=== PATIENT | male | born 1970 | race Caucasian/White ===

== ENCOUNTER 2023-01-20 19:05 | Inpatient (IN) | payer BC, SELFPAY ==
[2023-01-20] VITALS (12 sets, daily range): BP systolic 125–180; BP diastolic 80–116; PULSE 76–104; RESP 12–22; TEMP 36.8; O2SAT 90–99; BMI 35.6; BMI 38.5
--- NOTE | 2023-01-20 19:06 | XRR_ITS ---
PROCEDURE INFORMATION: Exam: XR Chest Exam date and time: 01/20/2023 8:43 PM Age: 52 years old Clinical indication: Pain; Chest pressure; Additional info: Cp TECHNIQUE: Imaging protocol: Radiologic exam of the chest. Views: 1 view. COMPARISON: No relevant prior studies available. FINDINGS: Lungs: No CHF/pulmonary edema. Visible lungs appear essentially clear. Pleural spaces: No visible pneumothorax. No definite pleural fluid. Heart/Mediastinum: Heart size appears upper range of normal. Bones/joints: No significant acute finding. XR/XR chest 1V portable [id number] IMPRESSION: 1. No definite CHF or pneumonia. 2. Other findings discussed above.
--- NOTE | 2023-01-20 19:08 | XACV_ITS ---
Exam Room: 2 Ht: 183 cm Wt: 122 kg BSA: 2.54 m2 Gender: Male : 1970 Any Known Allergies: Codeine Exam Priority: Routine Indication(s): - Acute coronary syndrome Procedure(s): Procedure Description: Diagnostic procedure Procedure Description: PCI procedure Procedure Description: Left Heart Catheterization Procedure Description: Coronary IVUS Procedure Description: Drug Eluting Coronary Stent Procedure Description: PTCA Procedure Description: Miscellaneous Procedure Description: ACT Procedure Description: Coronary Angiography Diagnostic Cath Status: Emergency Diagnostic Findings * INDICATION: ST Elevation IN. * Circumflex has no significant disease. * Proximal Left Anterior Descending: total thrombotic occlusion, LEILA: 0 flow. This is the culprit vessel for ST elevation IN. * Proximal Right Coronary Artery: Chronic total occlusion, LEILA: 0 flow. It receives large sized epicardial collaterals from LAD. * Left Main has no disease. * First Obtuse Marginal Branch Segment: significant 80% stenosis, LEILA: 3 flow. * Coronary angiography shows right dominance. PCI Status: Emergency PCI Indication: Immediate PCI for STEMI Interventional Findings * PROCEDURE DETAIL: We engaged left main artery with XB 3.5 guide catheter. IV heparin was administered to maintain ACT. 0.014 run-through guidewire was used to cross totally occluded proximal LAD segment and was put in the distal vessel. We predilated the stenosis with 2.5 x 12 mm semicompliant balloon. This restored some flow. We used IVUS to size the vessel. Thrombus was seen. We then proceeded with placement of 3.5 x 18 mm resolute [place] drug-eluting stent in proximal LAD. IVUS was repeated that showed proximal portion of the stent had some underexpansion. This was followed by post dilation with 3.75 x 6 mm NC balloon. At this time final angiogram showed excellent stent expansion, no residual stenosis and LEILA-3 flow. We then turned our attention to OM 1 stenosis. Same run-through wire was used to cross the stenosis. We predilated it with 2.5 x 12 mm semicompliant balloon. This was followed by placement of 3.5 x 22 mm resolute [place] drug-eluting stent. IVUS was used to assess the stent. In the midsegment of the stent there was some underexpansion. We postdilated the stent with 3.75x3fnOY balloon. At this time, final angiogram was performed that showed excellent stent expansion, LEILA 3 flow and no residual stenosis. Guidewire and guide catheter were removed. Patient left the laboratory manager in a stable condition. . * Proximal Left Anterior Descendin% stenosis treated with a AB TREK 2.50X12 RX BALLOON, MDT R ADONIS 3.5X18 MARINA, and MDT NC EUPHORA RX [id number] BALLOON. 0% residual stenosis, LEILA: 3 flow. * First Obtuse Marginal Branch Segment: 80% stenosis treated with a AB TREK 2.50X12 RX BALLOON, MDT R ADONIS 3.5X22 MARINA, and MDT NC EUPHORA RX [id number] BALLOON. 0% residual stenosis, LEILA: 3 flow. Conclusions 1. Total thrombotic occlusion of proximal LAD 2. . This is culprit vessel for ST elevation IN. S/p successful revascularization with MARINA x1.. 3. Severe stenosis of OM1 s/p successful revascularization with 1 stent. 4. Proximal Left Anterior Descending was treated with a Balloon, Drug Eluting Stent, and Balloon. 5. First Obtuse Marginal Branch Segment was treated with a Balloon, Drug Eluting Stent, and Balloon. Recommendations * Dual antiplatelet therapy with aspirin and Plavix for at least 1 year. * High intensity statin therapy. * Transfer to ICU. * Aggrastat drip for 4 hours. Interventional RX Recommendation: PCI w/o planned CABG Diagnostic RX Recommendation: PCI w/o planned CABG Anticoagulation: Heparin Pressures Phase:Rest AO : 104 / 104 ( 93 ) @ 3:18:29 PM 102 / 89 ( 80 ) @ 3:18:29 PM 115 / 94 ( 105 ) @ 3:18:29 PM 113 / 89 ( 101 ) @ 3:18:29 PM 142 / 83 ( 111 ) @ 3:18:29 PM 136 / 85 ( 108 ) @ 3:18:29 PM LV : 144 / 8 / 25 @ 3:18:29 PM 145 / 10 / 24 @ 3:18:29 PM Valves Phase:DefaultPhase AV : 1.0 @ 8:18:29 PM 1.0 @ 8:18:29 PM AV Mean Gradient: 0.0 @ 8:18:29 PM Clinical Evaluation EBL: 5mL-10mL Procedural Details Pre-Procedure Time Out. Identified patient by full name and date of as verbalized by the patient/guarantor. Does the consent match the physician's order: N/A Emergent; Informed Consent not obtained due to time critical life threat. Accurate & Complete Informed Consent: N/A Emergent; Informed Consent not obtained due to time critical life threat. Inpatient/Outpatient History & Physical on Chart: N/A Emergent; Informed Consent not obtained due to time critical life threat. If H&P is completed, is and addenduem needed: N/A Emergent; Informed Consent not obtained due to time critical life threat; If yes, is the addendum complete: N/A Emergent; Informed Consent not obtained due to time critical life threat. Visualize and Verify Site with Patient/Guarantor: N/A. Relevant Radiology Images available: N/A Emergent; Informed Consent not obtained due to time critical life threat. Pre-op teaching completed and patient verbalized understanding. The risks, benefits, and alternatives of sedation and/or procedure were discussed by physician. The patient agrees to continue. Procedure started. [facility] Clinical Fraility Score: 3: Managing Well. 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 Chest Pain Symptom Assessment: Typical Angina Symptoms. Cardiovascular Instability: Yes, if yes, Persistant Ischemic Symptoms. Correct patient, site and procedure confirmed by cath team. Current diagnosis: STEMI. PERRLA. Strong, equal hand questioned documents examiner bilaterally. Lungs clear x 5 lobes. IV Site on Arrival: 20 gauge in the left hand. IV Site on Arrival: 20 gauge in the right anticubital. IV Fluids: 0.9% NaCl at KVO. 0 mL infused prior to laboratory manager. Oxygen started at 3liters/min via nasal canula. right groin was prepped with chloroprep then draped in the usual sterile fashion. right radial was prepped with chloroprep then draped in the usual sterile fashion. Physician notified. Baseline sample Acquired. HR: 101 BPM. Patient's family unavailable. Equipment: 6F - Radial. Cardiac Cath Pack. ACIST Manifold Kit Model BT 2000. Heparinized Saline (2 units/mL), 1000 mL bag. Physician arrived. Physician scrubbed in. Immediate Pre-Procedure Time Out. Correct Patient: N/A Emergent; Informed Consent not obtained due to time critical life threat; Correct Procedure: N/A Emergent; Informed Consent not obtained due to time critical life threat; Correct Site: N/A Emergent; Informed Consent not obtained due to time critical life threat; Correct Patient Position: N/A Emergent; Informed Consent not obtained due to time critical life threat; Correct Supplies: N/A Emergent; Informed Consent not obtained due to time critical life threat; Dried Flammable Prep: N/A Emergent; Informed Consent not obtained due to time critical life threat; Blood Products Available: N/A Emergent; Informed Consent not obtained due to time critical life threat;. Lidocaine 1% infiltrated to the right radial. Arterial access obtained. 6 bolivian XB 3.5 guide catheter was inserted over the Exchange J wire. Current Diagnosis : STEMI. Runthrough guidewire was advanced through the guide catheter to lesion in the prox LAD. Inflation number : 1 A AB TREK 2.50X12 RX BALLOON was prepped and advanced across the Prox LAD , then inflated to 12 CONRAD for 0:23 seconds. Inflation number: 2 The AB TREK 2.50X12 RX BALLOON was reinflated across the Prox LAD, to 12 CONRAD for 0:14 seconds. Results checked. Balloon out. IVUS catheter in, ringdown and measurements obtained, catheter out. Inflation Number : 3 A MDT R ADONIS 3.5X18 MARINA -Lot Number# [id number] was prepped and advanced across the Prox LAD. The stent was deployed at 12 CONRAD for 0:25 seconds. Exp 2024-07-08. Stent balloon out over wire. Results checked. IVUS catheter in, recording completed, catheter out. Results checked. Inflation number : 4 A MDT NC EUPHORA RX [id number] BALLOON was prepped and advanced across the Prox LAD , then inflated to 12 CONRAD for 0:13 seconds. Balloon out. Results checked. Runthrough guidewire redirected to the OM. Inflation number : 1 A AB TREK 2.50X12 RX BALLOON was prepped and advanced across the 1st Ob Alexa , then inflated to 10 CONRAD for 0:08 seconds. Balloon out. Results checked. PCI Indication : Immediate PCI for STEMI. Inflation Number : 2 A MDT R ADONIS 3.5X22 MARINA -Lot Number# [id number] was prepped and advanced across the 1st Ob Alexa. The stent was deployed at 12 CONRAD for 0:19 seconds. Exp 2024-09-04. Stent balloon out over wire. Results checked. Inflation number : 3 A MDT NC EUPHORA RX [id number] BALLOON was prepped and advanced across the 1st Ob Alexa , then inflated to 12 CONRAD for 0:15 seconds. Balloon out. Results checked. IVUS catheter in, recording completed, catheter out. Wire out. Results checked. ACT drawn. Results seconds. Therapeutic limits - pre-heparin administration 90-150 seconds and monitoring heparin during a vascular procedure >250 seconds. Guide catheter out over the Exchange J wire. A 5 bolivian JR4 catheter in over the Exchange J wire. EDP Sample taken: LV 144/8,25; HR: 94 BPM; SpO2: 95%. Pullback taken: LV 145/10,24; AO 142/83(111); Mean: 0mmHg, Peak to Peak: 1mmHg, SEP: 9sec/min; HR: 98 BPM; SpO2: 95%. Catheter redirected to the RCA. Cineography of the LCA performed. Cineography of the RCA performed. Catheter removed over the exchange J wire. Physician scrubbed out. A TR Band was successful obtaining hemostatsis at the Right Radial artery insertion site. TR band placed. Hemostasis obtained. Post Procedure: right radial pulse 2+. PERRLA. Strong, equal hand questioned documents examiner bilaterally. No VTE prophylaxis required. PCI Indication: STEMI. Post-op diagnosis: S/P PCI of the Prox LAD and OM 1. 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 Complications: none. Estimated blood loss: 5mL-10mL. Responsiveness - Normal response to verbal stimuli; alert and oriented, PERRLA. Airway - Unaffected, no intervention required; spontaneous ventilation. Circulation: W/N/L, pulses unchanged. Nausea/Vomiting: No. Medication's Wasted: Nitro = 49.8 mg. Medication's Wasted: Heparin = 2000 Units. Medication's Wasted: Other = Fentanyl 75 mcg. Medication's Wasted: Other = Lasix 60 mg. Total IV fluids: 47 mL. Procedure completed. Patient transferred by wheelchair to ICU. Vital chart was stopped. Access Site Site: Right Radial artery Sheath Size: 6 Fr Hemostasis Method: TR Band Hemostasis Success: Successful Procedure Medications Start: 7:34 PM Stop: 7:34 PM Medication: Versed Amount: 1 mg Route: I.V. Start: 7:34 PM Stop: 7:34 PM Medication: Fentanyl Amount: 50 mcg Route: I.V. Start: 7:34 PM Stop: 7:34 PM Medication: Nitrogylcerin Amount: 200 mcg Route: I.A. Start: 7:39 PM Stop: 7:39 PM Medication: Versed Amount: 1 mg Route: I.V. Start: 7:39 PM Stop: 7:39 PM Medication: Heparin Amount: 7000 units Route: I.V. Start: 7:43 PM Stop: 7:43 PM Medication: Fentanyl Amount: 25 mcg Route: I.V. Start: 7:44 PM Stop: 7:44 PM Medication: Heparin Amount: 2000 units Route: I.V. Start: 7:44 PM Stop: 7:44 PM Medication: Fentanyl Amount: 25 mcg Route: I.V. Start: 7:47 PM Stop: 7:47 PM Medication: Aggrastat 12.5 mg/250 mL Amount: ml Route: I.V. bolus Start: 7:47 PM Stop: 7:47 PM Medication: Aggrastat 12.5 mg/250 mL Amount: 22.5 ml/hr Route: I.V. bolus Start: 7:50 PM Stop: 7:50 PM Medication: Versed Amount: 1 mg Route: I.V. Start: 7:50 PM Stop: 7:50 PM Medication: Fentanyl Amount: 25 mcg Route: I.V. Start: 7:58 PM Stop: 7:58 PM Medication: Versed Amount: 1 mg Route: I.V. Start: 8:11 PM Stop: 8:11 PM Medication: Lasix (furosemide) Amount: 40 mg Route: I.V. I, the attending physician, have reviewed and verified all procedure medications. Yes, all medications given per verbal order Report Signatures Finalized by Matti Merrill MD on 01/21/2023 12:40 PM
--- NOTE | 2023-01-20 19:09 | ED_ITS ---
HPI - Chest Pain General: Stated Complaint: CP Time Seen by Provider: 01/20/23 19:06 Source: patient Mode of arrival: ambulatory Limitations: no limitations History of Present Illness: 52-year-old male states he started having chest pain roughly 45 minutes to an hour ago. Patient was flown here EKG with helicopter service does show a STEMI with elevation in V1 through V3 he is on a nitro drip he states pain has improved on the nitro. No history of known cardiac disease does have high cholesterol and obesity Associated symptoms: Reports nausea; Deny abdominal pain, dyspnea, fever(s) or vomiting Review of Systems Const: Denies: fever(s) or chills Eyes: Denies: eye discomfort ENMT: Denies: throat pain or dental pain Card: Reports: chest pain Resp: Denies: dyspnea GI: Reports: nausea; Denies: abdominal pain or vomiting Musc: Denies: neck pain or back pain Skin/Breast: Denies: rash Neuro: Denies: headache(s) Physical Exam Const: COMMON NORMALS: patient oriented x3 GENERAL APPEARANCE: ill appearing HENMT: COMMON NORMALS: normocephalic and atraumatic HEAD & SCALP: normocephalic and atraumatic Eye: COMMON NORMALS: conjunctivae normal CONJUNCTIVA: Yes conjunctivae normal Neck/C-Spine: COMMON NORMALS: full ROM and supple Chest: COMMONS NORMALS: normal inspection of the chest and normal palpation of entire chest wall Resp: COMMON NORMALS: normal respiratory effort, No retractions, No use of accessory muscles and clear to auscultation bilaterally AUSCULTATION: clear to auscultation bilaterally Cardio: COMMON NORMALS: regular rate, regular rhythm and No murmurs present (Cardio) RATE: regular rate RHYTHM: regular rhythm GI: COMMON NORMALS: Normal to inspection, nondistended, normoactive bowel sounds present, Soft to palpation, non-tender and no masses PALPATION: Yes So ft to palpation Extremity: COMMON NORMALS: normal to inspection Neuro: COMMON NORMALS: patient oriented x3, moves all extremities and no focal motor deficits Psych: COMMON NORMALS: mental status grossly normal, Normal thought process present and cooperative THOUGHT PROCESS: Normal thought process present Skin: COMMON NORMALS: no rashes or lesions noted and no wounds GENERAL SKIN EXAM: no rashes or lesions noted MDM - Chest Pain Medical Decision Making Patient presents with ST elevation ID he is on a nitro drip by EMS we will give him heparin Plavix I spoke to the inspector packer [employer] Media Specialist activated Discharge Plan Discharge Patient Disposition: Admitted As Inpatient Clinical Impression: ST elevation (STEMI) myocardial infarction Condition: Stable Coding Level of Care Code ED Operational Communication Chief for Jordan Cheema
[2023-01-20] MEDS: heparin 5,000 unit/mL INJ 1 mL 4000 UNIT IVP (19:15)
--- NOTE | 2023-01-20 19:18 | PM.HP ---
Providers/Chief Complaint Admitting Physician: Matti Merrill MD Chief Complaint: Chest pain History of Present Illness Madan West is a 52 year old male with smoking history and no significant prior cardiac history and not on any medications started having chest pain about 1 hour ago. Severe substernal pain. EMS was called and EKG is demonstrating ST elevations in anterior leads with significant reciprocal changes. STEMI alert was activated and patient brought to the Operator Receptionist emergently. Review of Systems Const: Denies: fever(s) or chills Eyes: Denies: eye discomfort ENMT: Denies: throat pain or dental pain Card: Reports: chest pain Resp: Denies: dyspnea GI: Reports: nausea; Denies: abdominal pain or vomiting Musc: Denies: neck pain or back pain Skin/Breast: Denies: rash Neuro: Denies: headache(s) Medications/Allergies Allergies Allergy/AdvReac Type Severity Reaction Status Date / Time codeine Allergy Unknown Verified 01/20/23 19:13 Vitals/I&O/Wt Last Vital Signs Pulse 78 01/20/23 19:06 Resp 18 01/20/23 19:06 BP 134/80 01/20/23 19:06 Pulse Ox 97 01/20/23 19:06 Weight last 48 hrs Weight 270 lb Physical Exam Narrative: GENERAL: Patient is alert, awake and oriented x3. [] NECK: No jugular vein distension. [] HEENT: No cyanosis. No icterus. No pallor. [] HEART: Regular S1 and S2. No murmur, rub or gallop. [] LUNGS: Diminished air entry. CENTRAL NERVOUS SYSTEM: Grossly nonfocal. [] EXTREMITIES: Lower extremities with no edema Data 01/20/23 19:15 01/20/23 19:15 A&P Assessment and plan (1) ST elevation (STEMI) myocardial infarction: Plan Patient appears to have anterior wall ST elevation CO. Operator Receptionist activated emergently. Going for emergent coronary angiogram. Procedure discussed with patient who agrees to proceed. Aspirin, Plavix loaded. IV heparin bolus given. We will obtain echocardiogram postprocedure. ICU transfer post procedure Attestations Medical Necessity Statement*: Care expected to cross 2 midnights. Patient has presented with ST elevation CO and plan for emergent coronary angiogram with PCI. Coding Level of Care Code Acute Code for [facility] Diagnoses ST elevation (STEMI) myocardial infarction I21.3
[2023-01-20] MEDS: sodium chloride 0.9% 1,000 ML 999 ML IV (19:20)
[2023-01-20] MEDS: clopidogrel 300 mg Tablet 600 MG PO (19:20)
[2023-01-20 19:29] LABS: Basophils # 0.1 10^3/uL (0.0-0.1); Basophils % 0.4 %; Eosinophils # 0.4 10^3/uL (0.0-0.8); Eosinophils % 2.1 %; Hematocrit 54.5 % (42.0-52.0); Hemoglobin 18.6 g/dL (11.7-16.6); Lymphocytes # 2.1 10^3/uL (0.8-4.8); Lymphocytes % 13.1 %; Mean Corpuscular HGB Conc 34.1 g/dL (30.0-36.0); Mean Corpuscular Volume 90.8 fl (80-94); Monocytes % 5.8 %; Neutrophils # 12.65 10^3/uL (1.8-7.7); Neutrophils % 77.9 %; Nucleated Red Blood Cells % 0 %; Platelet Count 242 10^3/cmm (130-400); Red Cell Distribution Width 13.6 % (12.1-15.1); White Blood Count 16.3 10^3/uL (4.0-10.0)
[2023-01-20 19:41] LABS: INR 0.86 (0.8-1.2)
[2023-01-20 19:49] LABS: Alanine Aminotransferase 24 U/L (0-41); Albumin Level 4.6 g/dL (3.5-5.2); Alkaline Phosphatase 94 U/L (40-130); Aspartate Amino Transferase 18 U/L (0-40); Blood Urea Nitrogen 12 mg/dL (6-20); Calcium 10.1 mg/dL (8.5-10.5); Carbon Dioxide 26 mmol/L (22-29); Chloride 100 mmol/L (98-107); Globulin 3.4 g/dL (1.3-4.6); Glucose 128 mg/dL (65-115); Osmolality Calculated 291 mOsm/kg (285-295); Sodium 140 mmol/L (136-145); Total Bilirubin 0.8 mg/dL (0.15-1.2)
[2023-01-20 19:53] LABS: Troponin(5th) Baseline 40 ng/L (0-15)
--- NOTE | 2023-01-20 20:20 | PC.NURSE ---
Admission Note: Pt arrived from ship laborer to ICU 8 via wheelchair @201901/20/23. Continuos cardiac monitoring initiated. TR band to r. radial, w/ 14ml balloon per ship laborer team. Pt reporting CP 10/27, Dr. Merrill aware.
--- NOTE | 2023-01-20 20:24 | USCV_ITS ---
Madan West Age: 52 Gender: M : 1970 Exam Date: 01/20/2023 20:58 Ordering Phys: Matti Merrill M.D ([email or web address]) Technologist: NEYDA [place]am Location[place] [facility] [place] Indication: STEMI. s/p cardiac catheterization with 2 stents. BP: 137 / 82 HR: 89 Rhythm: Sinus Technical Quality: Adequate with OPTISON MEASUREMENTS (Male / Female) Normal Values 2D ECHO LV Diastolic Diameter PLAX 3.9 cm 4.2 - 5.9 / 3.9 - 5.3 cm LV Systolic Diameter PLAX 2.8 cm IVS Diastolic Thickness 1.3 cm 0.6 - 1.0 / 0.6 - 0.9 cm IVS Systolic Thickness 2.2 cm LVPW Diastolic Thickness 1.4 cm 0.6 - 1.0 / 0.6 - 0.9 cm LVPW Systolic Thickness 1.7 cm LVOT Diameter 2.0 cm LV Ejection Fraction 2D Teich 56.3 % LV Ejection Fraction MOD 2C 53.6 % LV Ejection Fraction 2C AL 53.3 % LA Diameter 4.2 cm LA Width 3.9 cm LA Height 5.3 cm RA Width 4.0 cm RA Height 4.9 cm IVC Diameter 2.0 cm M-MODE Aortic Annulus Diameter 3.0 cm LA Ao Ratio MM 1.3 MV E Point Septal Separation 0.7 cm DOPPLER AV Peak Velocity 116.0 cm/s LVOT Peak Velocity 68.0 cm/s AV Area Cont Eq vti 1.9 cm squared AV Area Cont Eq pk 1.8 cm squared MV Area PHT 4.0 cm squared Mitral E to A Ratio 2.6 MV E' Velocity 45.5 cm/s Mitral E to MV E' Ratio 9.8 Mitral E to LV E' Lateral Ratio 10.7 Mitral E to LV E' Septal Ratio 9.2 TV Peak E Velocity 44.0 cm/s PV Peak Velocity 69.0 cm/s RV Acceleration Time 0.1 s RV Ejection Time 0.3 s RV AcT/ET 0.3 FINDINGS Left Ventricle Technically limited quality echocardiogram because of poor visualization. LV systolic function is moderately reduced with EF of 35 to 40%. Severe hypokinesis of anterior, anteroseptal and inferoseptal andres. Akinetic apical wall. Grade 3 diastolic dysfunction Right Ventricle Normal in size and function Right Atrium Normal in size Left Atrium Normal in size Mitral Valve Structurally normal mitral valve. Aortic Valve Grossly normal. No significant stenosis or regurgitation. Tricuspid Valve Mild tricuspid regurgitation. Insufficient TR jet to calculate RVSP. Pulmonic Valve Not well visualized Pericardium Normal Aorta Grossly normal in size IVC Appears to be normal CONCLUSIONS Technically limited quality echocardiogram because of poor ultrasonic windows. LV systolic function is moderately reduced with EF of 35 to 40%. Above-mentioned regional wall motion abnormalities are seen. Grade 3 diastolic dysfunction. Mild tricuspid regurgitation. No comparison studies are available Matti Merrill MD (Electronically Signed) Final Date: 21 January 2023 07:44 S
--- NOTE | 2023-01-20 20:50 | ECG_ITS ---
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 Measurements Intervals [place] Rate: 81 P: 0 MT: 0 QRS: 55 QRSD: 94 T: 36 QT: 350 QTc: 407 Interpretive Statements ATRIAL FIBRILLATION WITH ABERRANT CONDUCTION OR VENTRICULAR PREMATURE COMPLEXES ST ELEVATION, CONSIDER SEPTAL INJURY [MARKED ST ELEVATION W/O NORMALLY INFLECTED T-WAVE IN V1/V2] ACUTE VA No previous ECG available for comparison Electronically Signed On 01-21-2023 4:16:56 CDT by Rosita Caldera M.D. [id number]
[2023-01-20] MEDS: tirofiban 5 MG/100 ML PREMIX 22.05 MG IV (21:00)
[2023-01-20] MEDS: metoprolol tartrate 25 mg Tablet 12.5 MG PO (21:48)
[2023-01-20] MEDS: atorvastatin 40 mg Tablet 80 MG PO (21:48)
[2023-01-20 22:06] LABS: Troponin 5 2HR 5929 ng/L (0-15); Troponin 5 2HR Delta 5889 ABS# (0-10)
[2023-01-21] VITALS (27 sets, daily range): BP systolic 98–141; BP diastolic 74–110; PULSE 78–98; RESP 17–27; TEMP 36.6–37.2; O2SAT 88–98
--- NOTE | 2023-01-21 00:44 | PC.NURSE ---
TR band removed: Air removed from TR band slowly over several hours. No oozing noted. TR band removed @0005 01/21/23 and transparent dressing applied. See Post Caridac Cath Flow Sheet for site observations.
[2023-01-21] MEDS: perflutren protein-a microsphr 0.22 mg/mL SDV 3 mL IV (05:52)
--- NOTE | 2023-01-21 06:21 | PC.NURSE ---
V. Tach: Pt had 4 runs of V. tach throughout the night, ranging from 5 to 9 consecutive beats. Strips placed in paper chart.
[2023-01-21 06:29] LABS: Basophils # 0.1 10^3/uL (0.0-0.1); Basophils % 0.3 %; Eosinophils # 0.1 10^3/uL (0.0-0.8); Eosinophils % 0.5 %; Hematocrit 49.3 % (42.0-52.0); Hemoglobin 16.8 g/dL (11.7-16.6); Lymphocytes # 1.9 10^3/uL (0.8-4.8); Lymphocytes % 10.9 %; Mean Corpuscular HGB Conc 34.1 g/dL (30.0-36.0); Mean Corpuscular Hemoglobin 31.1 pg (28.0-34.0); Mean Corpuscular Volume 91.3 fl (80-94); Mean Platelet Volume 11.2 fL (7.4-10.4); Monocytes % 5.5 %; Neutrophils # 14.28 10^3/uL (1.8-7.7); Neutrophils % 82.3 %; Nucleated Red Blood Cells % 0 %; Platelet Count 218 10^3/cmm (130-400); Red Cell Distribution Width 13.7 % (12.1-15.1); White Blood Count 17.4 10^3/uL (4.0-10.0)
[2023-01-21 06:57] LABS: Anion Gap 16.7 (5-19); Blood Urea Nitrogen 13 mg/dL (6-20); Calcium 9.3 mg/dL (8.5-10.5); Carbon Dioxide 24 mmol/L (22-29); Chloride 101 mmol/L (98-107); Glomerular Filtration Rate 78.2 mL/min (90-130); Glucose 130 mg/dL (65-115); Osmolality Calculated 288 mOsm/kg (285-295); Potassium 3.7 mmol/L (3.5-5.1); Sodium 138 mmol/L (136-145)
--- NOTE | 2023-01-21 07:10 | PM.PN ---
Subjective Subjective: Patient had presented with anterior wall STEMI yesterday and underwent revascularization of prox LAD with 1 stent and of OM 1 with 1 stent. 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 Denies chest pain. Vitals/I&O/Wt Last Vital Signs Temp 98.2 F 01/20/23 21:30 Pulse 88 01/21/23 06:00 Resp 19 H 01/21/23 06:00 BP 119/91 01/21/23 06:00 Pulse Ox 92 01/21/23 06:00 O2 Del Method Room Air 01/21/23 06:00 01/20/23 01/21/23 01/21/23 22:59 06:59 14:59 Intake Total 850 / 850 367.987 / 1217.987 Output Total 1000 / 1000 300 / 1300 Balance -150 / -150 67.987 / -82.013 Weight last 48 hrs Weight 292 lb Weight 270 lb Physical Exam Narrative: GENERAL: Patient is alert, awake and oriented x3. [] NECK: No jugular vein distension. [] HEENT: No cyanosis. No icterus. No pallor. [] HEART: Regular S1 and S2. No murmur, rub or gallop. [] LUNGS: Diminished air entry. CENTRAL NERVOUS SYSTEM: Grossly nonfocal. [] EXTREMITIES: Lower extremities with no edema Data 01/21/23 05:50 01/21/23 05:50 A&P Assessment and plan (1) ST elevation (STEMI) myocardial infarction: (2) HFrEF (heart failure with reduced ejection fraction): Plan Patient had PCI of LAD and OM 1 yesterday. He is doing well. Dual antiplatelet therapy with aspirin and Plavix for atleast 1 year. High intensity statin therapy Renal function has improved. Will start Losartan. Uptitrate metoprolol ECHO shows moderately reduced LV systolic function with EF of 35-40%. Attestations Medical Necessity Statement*: Care expected to cross 2 midnights. Coding Level of Care Code Acute Code for [facility] Diagnoses ST elevation (STEMI) myocardial infarction I21.3 HFrEF (heart failure with reduced ejection fraction) I50.20
[2023-01-21] MEDS: clopidogrel 75 mg Tablet PO (08:44)
[2023-01-21] MEDS: aspirin 81 mg EC Tablet PO (08:45)
[2023-01-21] MEDS: metoprolol tartrate 25 mg Tablet 12.5 MG PO ×2 (08:45→20:10)
--- NOTE | 2023-01-21 09:19 | PC.PHAR ---
pt states he takes no rx medications pt states only been taking a 81mg aspirin daily-no meds pull up on ext med history
[2023-01-21 11:22] LABS: Chol HDL Ratio 5.57 mg/dL (1.0-5.00); Cholesterol 206 mg/dL (0-200); HDL Cholesterol 37 mg/dL (60-100); LDL Cholesterol Calculated 146 mg/dL (50-129); LDL HDL Ratio 3.95 RATIO (0.00-3.22); Triglycerides 114 mg/dL (0-150)
[2023-01-21 11:51] LABS: Estmated Average Glucose 120; Hemoglobin A1C 5.8 % (4.0-6.0)
--- NOTE | 2023-01-21 18:52 | PC.NURSE ---
Shift summary: Pt rested in bed most of day. He did get up to chair right before dinner. He did complain of mild chest pain at beginning of shift. NO further complaints after Metoprolol admin. Sinus rhythm throughout shift, no ectopy noted. VS stable. Pt remains on room air, no shortness of breath noted or commented on by pt. he gets up to use urinal or bathroom. Unable to have accurate urine output measure due to family emptying urinal. Pt has not had much of appetite today but has ate about half of his meals. He was receptive to education on ceasing smoking and heart healthy diet.
[2023-01-21] MEDS: atorvastatin 40 mg Tablet 80 MG PO (20:10)
[2023-01-22] VITALS (10 sets, daily range): BP systolic 101–125; BP diastolic 70–85; PULSE 72–83; RESP 15–23; TEMP 36.8; O2SAT 89–96
[2023-01-22 05:34] LABS: Basophils # 0.1 10^3/uL (0.0-0.1); Basophils % 0.5 %; Eosinophils # 0.3 10^3/uL (0.0-0.8); Eosinophils % 2.3 %; Hematocrit 46.6 % (42.0-52.0); Hemoglobin 16.2 g/dL (11.7-16.6); Lymphocytes # 2.2 10^3/uL (0.8-4.8); Lymphocytes % 17.9 %; Mean Corpuscular HGB Conc 34.8 g/dL (30.0-36.0); Mean Corpuscular Hemoglobin 32.1 pg (28.0-34.0); Mean Corpuscular Volume 92.5 fl (80-94); Mean Platelet Volume 10.9 fL (7.4-10.4); Monocytes % 8.3 %; Neutrophils % 70.4 %; Nucleated Red Blood Cells % 0 %; Platelet Count 189 10^3/cmm (130-400); Red Blood Count 5.04 10^6/uL (4.1-5.3); Red Cell Distribution Width 13.8 % (12.1-15.1); White Blood Count 12.5 10^3/uL (4.0-10.0)
--- NOTE | 2023-01-22 05:35 | PC.NURSE ---
Urine Output: Unable to accurately measure urine output. Pt is up ad [place] and went to the bathroom on his own tonight. Pt reported several voids.
[2023-01-22 05:56] LABS: Blood Urea Nitrogen 11 mg/dL (6-20); Calcium 8.7 mg/dL (8.5-10.5); Carbon Dioxide 24 mmol/L (22-29); Chloride 101 mmol/L (98-107); Glomerular Filtration Rate 88.3 mL/min (90-130); Glucose 100 mg/dL (65-115); Osmolality Calculated 283 mOsm/kg (285-295); Sodium 137 mmol/L (136-145)
--- NOTE | 2023-01-22 07:52 | P.DS_ITS ---
Discharge Providers Date of Admission: 01/20/23 20:32 Date of Discharge: January 22, 2023 Attending Provider at Admission: Matti Merrill M.D Attending Provider at Discharge: Matti Merrill M.D Diagnoses at Discharge Discharge Diagnosis (1) ST elevation (STEMI) myocardial infarction: Status: Inactive (2) HFrEF (heart failure with reduced ejection fraction): Status: Acute Reason for Visit Reason for Visit: Chest pain Brief History: ?52 year old male with smoking history and no significant prior cardiac history and not on any medications started having chest pain about 1 hour ago.? Severe substernal pain.? EMS was called and EKG is demonstrating ST elevations in anterior leads with significant reciprocal changes.? STEMI alert was activated and patient brought to the Converter Operator emergently. Hospital Course Hospital Course Cardiac catheterization showed totally occluded proximal LAD that underwent successful revascularization with 1 stent. 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 He was discharged home on dual antiplatelet therapy with aspirin and Plavix, high intensity statin therapy, metoprolol and losartan.Smoking cessation strongly recommended.Patient is motivated to quit smoking. he will follow with cardiology office as outpatient. Physical Exam Narrative: GENERAL: Patient is alert, awake and oriented x3. [] NECK: No jugular vein distension. [] HEENT: No cyanosis. No icterus. No pallor. [] HEART: Regular S1 and S2. No murmur, rub or gallop. [] LUNGS: Diminished air entry. CENTRAL NERVOUS SYSTEM: Grossly nonfocal. 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 echo wo/w contrast [id number] Routine Ultrasound 01/20/23 20:24 Completed Pending at discharge Category Date Time Status Basic Metabolic Panel AM LABS Lab 01/23/23 04:00 Ordered Complete Blood Count w/Auto AM LABS Lab 01/23/23 04:00 Ordered Radiology Impressions Chest X-Ray 01/20/23 19:06 IMPRESSION: 1. No definite CHF or pneumonia. 2. Other findings discussed above. Laboratory Results WBC 12.5 10^3/uL (4.0-10.0) H 01/22/23 05:21 RBC 5.04 10^6/uL (4.1-5.3) 01/22/23 05:21 Hgb 16.2 g/dL (11.7-16.6) 01/22/23 05:21 Hct 46.6 % (42.0-52.0) 01/22/23 05:21 MCV 92.5 fl (80-94) 01/22/23 05:21 MCH 32.1 pg (28.0-34.0) 01/22/23 05:21 MCHC 34.8 g/dL (30.0-36.0) 01/22/23 05:21 RDW 13.8 % (12.1-15.1) 01/22/23 05:21 Plt Count 189 10^3/cmm (130-400) 01/22/23 05:21 MPV 10.9 fL (7.4-10.4) H 01/22/23 05:21 Neut % (Auto) 70.4 % 01/22/23 05:21 Lymph % (Auto) 17.9 % 01/22/23 05:21 Dundy % (Auto) 8.3 % 01/22/23 05:21 Eos % (Auto) 2.3 % 01/22/23 05:21 Baso % (Auto) 0.5 % 01/22/23 05:21 Neut # (Auto) 8.80 10^3/uL (1.8-7.7) H 01/22/23 05:21 Lymph # (Auto) 2.2 10^3/uL (0.8-4.8) 01/22/23 05:21 Dundy # (Auto) 1.0 10^3/uL (0.2-0.9) H 01/22/23 05:21 Eos # (Auto) 0.3 10^3/uL (0.0-0.8) 01/22/23 05:21 Baso # (Auto) 0.1 10^3/uL (0.0-0.1) 01/22/23 05:21 Nucleated RBC % (auto) 0 % 01/22/23 05:21 Nucleated RBCs # 0.0 /100WBC 01/22/23 05:21 PT 11.90 SECONDS (12.1-14.9) L 01/20/23 19:15 INR 0.86 (0.8-1.2) 01/20/23 19:15 Sodium 137 mmol/L (136-145) 01/22/23 05:21 Potassium 4.0 mmol/L (3.5-5.1) 01/22/23 05:21 Chloride 101 mmol/L (98-107) 01/22/23 05:21 Carbon Dioxide 24 mmol/L (22-29) 01/22/23 05:21 Anion Gap 16.0 (5-19) 01/22/23 05:21 BUN 11 mg/dL (6-20) 01/22/23 05:21 Creatinine 0.9 mg/dL (0.7-1.2) 01/22/23 05:21 GFR Calculation 88.3 mL/min (90-130) L 01/22/23 05:21 Glucose 100 mg/dL (65-115) 01/22/23 05:21 Estimat Average Glucose 120 01/21/23 05:50 Hemoglobin A1c 5.8 % (4.0-6.0) 01/21/23 05:50 Calculated Osmolality 283 mOsm/kg (285-295) L 01/22/23 05:21 Calcium 8.7 mg/dL (8.5-10.5) 01/22/23 05:21 Total Bilirubin 0.8 mg/dL (0.15-1.2) 01/20/23 19:15 AST 18 U/L (0-40) 01/20/23 19:15 ALT 24 U/L (0-41) 01/20/23 19:15 Alkaline Phosphatase 94 U/L (40-130) 01/20/23 19:15 Troponin T Baseline 40 ng/L (0-15) H 01/20/23 19:15 Troponin T 120 Minute 5929 ng/L (0-15) H 01/20/23 21:35 Delta Troponin T 5889 ABS# (0-10) H* 01/20/23 21:35 Total Protein 8.0 g/dL (6.6-8.7) 01/20/23 19:15 Albumin 4.6 g/dL (3.5-5.2) 01/20/23 19:15 Globulin 3.4 g/dL (1.3-4.6) 01/20/23 19:15 Triglycerides 114 mg/dL (0-150) 01/21/23 05:50 Cholesterol 206 mg/dL (0-200) H 01/21/23 05:50 LDL Cholesterol, Calc 146 mg/dL (50-129) H 01/21/23 05:50 HDL Cholesterol 37 mg/dL (60-100) L 01/21/23 05:50 LDL/HDL Ratio 3.95 RATIO (0.00-3.22) H 01/21/23 05:50 Cholesterol/HDL Ratio 5.57 mg/dL (1.0-5.00) H 01/21/23 05:50 Vitals Last Vital Signs Temp 98.2 F 01/22/23 07:38 Pulse 83 01/22/23 06:00 Resp 23 H 01/22/23 06:00 BP 112/84 01/22/23 06:00 Pulse Ox 91 01/22/23 06:00 O2 Del Method Room Air 01/22/23 06:00 Discharge Plan Discharge Patient Disposition: Home Condition: Stable Prescriptions: New losartan 50 mg Tablet 25 mg PO DAILY Qty: 90 3RF atorvastatin 40 mg Tablet 80 mg PO BEDTIME Qty: 90 3RF clopidogrel 75 mg Tablet 75 mg PO DAILY Qty: 90 3RF aspirin 81 mg Tablet,Delayed Release (Dr/Ec) 81 mg PO DAILY Qty: 90 3RF metoprolol tartrate 25 mg Tablet 25 mg PO BID@0900,2100 Qty: 90 3RF Discontinued aspirin [Aspir-81] 81 mg Tablet,Delayed Release (Dr/Ec) 81 mg PO DAILY No Action nitroglycerin 0.4 mg tablet, sublingual 0.4 mg sublingual Q5M PRN (Reason: chest pain) Qty: 25 2RF Rx Instructions: do not exceed 3 doses per episode Discharge Orders: Discharge Order (Routine); Ordered 01/22/23 Ordered By: Matti Merrill Referrals: Elizabeth Lara at [facility] [Other] - 01/27/23 9:00 am Matti Merrill M.D [Physician] - 2 months (will schedule appointment after visit with Peyton Burr APN Nurse) Peyton Burr FNP [Nurse Practitioner] - 02/05/23 9:30 am (appointment scheduled: January at time of 09:30 am after this visit will schedule with Cardiology ) Discharge Diet: Cardiac Discharge Activity: Increase activity as tolerated Patient Instructions: Metoprolol (By mouth), Aspirin (By mouth), Losartan (By mouth) (Cozaar), Atorvastatin (By mouth) (Lipitor), Clopidogrel (By mouth) (Plavix), Heart Attack (DC), Heart Failure (DC), Coronary Angioplasty (DC), Heart Healthy Diet (DC), Coronary Intravascular Stent Placement (DC), Opioid Safety, Post Angiogram Home Care Instructions, Post Heart Attack Stoplight Discharge Attestations Time Spent in Discharge Care*: greater than 30 min Quality Metrics Clinical Quality Measures [ Acute Myocardial Infaction { Clinical Trial Participant: No; Contraindication to aspirin: None; Aspirin prescribed; Contraindication to statin: None; Statin prescribed; Contraindication to PCI: None; PCI performed;}] Coding Level of Care Code Acute Code for [facility] Diagnoses ST elevation (STEMI) myocardial infarction I21.3 HFrEF (heart failure with reduced ejection fraction) I50.20
[2023-01-22] MEDS: losartan 50 mg Tablet 25 MG PO (08:35)
[2023-01-22] MEDS: clopidogrel 75 mg Tablet PO (08:35)
[2023-01-22] MEDS: metoprolol tartrate 25 mg Tablet PO (08:35)
[2023-01-22] MEDS: aspirin 81 mg EC Tablet PO (08:35)
== END 2023-01-22 09:58 | disposition home or self-care (01) | DRG 247 ==
LOC: ER 19:17 → CARD 19:28 → ICU 01-21 10:40 → ER 02-05 09:11 → OPS 02-05 09:11
PROVIDERS: Admitting Provider Internal Medicine; Emergency Provider Emergency Medicine; Visit Provider Internal Medicine
PROC: 027135Z Dilation of Coronary Artery, Two Arteries with Two Drug-eluting Intraluminal Devices, Percutaneous Approach (ICD-10-PCS; principal; 2023-01-20 19:25)
PROC: 027135Z Dilation of Coronary Artery, Two Arteries with Two Drug-eluting Intraluminal Devices, Percutaneous Approach (ICD-10-PCS; 2023-01-20 19:25)
DX: I21.02 ST elevation (STEMI) myocardial infarction involving left anterior descending coronary artery (principal); I50.20 Unspecified systolic (congestive) heart failure; F17.200 Nicotine dependence, unspecified, uncomplicated; Z79.82 Long term (current) use of aspirin
CPT/HCPCS: 36415; 71045; 80048; 80053; 80061; 83036; 84484; 85025; 85347; 85610; 92978; 92979; 93005; 93458; 96365; 96367; 96374; 96376; 99152; 99153; 99285; C1725; C1753; C1769; C1874; C1887; C1894; C8929; C9600; C9601; J1644; J1940; J2250; J2270; J2405; J3010; J3490; J7030; Q9956; Q9967

== ENCOUNTER → 2023-02-05 09:04 | Outpatient (BNVA) | payer BC, MEDICAID, SELFPAY | PROVIDERS: Visit Provider Nurse Practitioner Family | DX: I50.20 Unspecified systolic (congestive) heart failure (principal); I25.10 Atherosclerotic heart disease of native coronary artery without angina pectoris | CPT/HCPCS: 36415; 80048; 83880 ==

== ENCOUNTER 2023-04-09 09:00 | Outpatient (CLI) | payer BC, MEDICAID, SELFPAY ==
--- NOTE | 2023-04-09 09:30 | USCV_ITS ---
Madan West Age: 52 Gender: M : 1970 Exam Date: 04/09/2023 09:14 Ordering Phys: Peyton Burr Technologist: Chela Hogan [place] [facility] [place] Indication: redcued EF 35-40%- h/o stent BP: 150 / 96 HR: 82 Rhythm: Sinus Technical Quality: Adequate with optison MEASUREMENTS (Male / Female) Normal Values 2D ECHO LV Diastolic Diameter PLAX 5.1 cm 4.2 - 5.9 / 3.9 - 5.3 cm LV Systolic Diameter PLAX 4.1 cm IVS Diastolic Thickness 1.5 cm 0.6 - 1.0 / 0.6 - 0.9 cm IVS Systolic Thickness 1.7 cm LVPW Diastolic Thickness 1.3 cm 0.6 - 1.0 / 0.6 - 0.9 cm LVPW Systolic Thickness 2.0 cm LVOT Diameter 2.2 cm LV Ejection Fraction 2D Teich 33.3 % LV Ejection Fraction MOD 2C 63.2 % LV Ejection Fraction 2C AL 64.0 % LA Diameter 3.7 cm LA Width 3.6 cm LA Height 5.0 cm RA Width 3.5 cm RA Height 4.7 cm Aorta at Sinotubular Diameter 3.2 cm IVC Diameter 2.1 cm M-MODE Aortic Annulus Diameter 3.4 cm LA Ao Ratio MM 1.0 MV E Point Septal Separation 1.3 cm DOPPLER AV Peak Velocity 142.0 cm/s LVOT Peak Velocity 105.0 cm/s AV Area Cont Eq vti 3.1 cm squared AV Area Cont Eq pk 2.9 cm squared MV Peak Velocity 102.0 cm/s MV Area PHT 5.5 cm squared Mitral E to A Ratio 1.1 MV E' Velocity 46.0 cm/s Mitral E to MV E' Ratio 9.7 Mitral E to LV E' Lateral Ratio 8.6 Mitral E to LV E' Septal Ratio 11.1 TR Peak Velocity 64.0 cm/s TR Peak Gradient 1.6 mmHg Right Atrial Pressure 5.0 mmHg Pulmonary Artery Systolic Pressu 6.6 mmHg PV Peak Velocity 106.0 cm/s RV Acceleration Time 0.1 s RV Ejection Time 0.3 s RV AcT/ET 0.5 FINDINGS Left Ventricle Technically limited quality echocardiogram because of poor ultrasonic windows. LV systolic function is mildly reduced with EF of 45 to 50%. Accurate assessment of regional wall motion abnormalities is not possible because of poor visualization. Right Ventricle Normal in size and function Right Atrium Normal in size Left Atrium Dilated Mitral Valve Structurally normal mitral valve. Trace mitral regurgitation. Aortic Valve Grossly normal. No significant stenosis or regurgitation Tricuspid Valve Insufficient TR jet to evaluate RVSP Pulmonic Valve Not well-visualized Pericardium Normal Aorta Normal in size IVC Not well visualized. CONCLUSIONS Technically very limited quality echocardiogram because of poor ultrasonic windows. LV systolic function is mildly reduced with EF of 45-50% Left atrial dilation. Trace mitral regurgitation Compared to prior echocardiogram from 01/2023, LV systolic function has improved and is mildly reduced now. Matti Merrill MD (Electronically Signed) Final Date: 19 April 2023 12:02 S
[2023-04-09] MEDS: perflutren protein-a microsphr 0.22 mg/mL SDV 3 mL IV (09:40)
== END 2023-04-09 09:01 | disposition home or self-care (01) ==
LOC: RAD 09:03
PROVIDERS: PCP Nurse Practitioner; Visit Provider Nurse Practitioner Family
DX: I50.20 Unspecified systolic (congestive) heart failure (principal)
CPT/HCPCS: 36415; 80048; 83880; C8929; Q9956